=== PATIENT | female | born 1985 | race Caucasian/White ===

== ENCOUNTER 2019-05-29 15:34 | Emergency (ER) | payer MEDICAID, SELFPAY ==
[2019-05-29 15:46] VITALS: BP 128/73; PULSE 92; TEMP 37.2; O2SAT 100
[2019-05-29] MEDS: KETOROLAC (*BKC) 60 MG/2 ML VIAL IM (16:22)
[2019-05-29] MEDS: DIAZEPAM 5 MG TABLET PO (16:22)
--- NOTE | 2019-05-29 16:58 | ED.BACK ---
HPI - Back Pain/Injury General Chief Complaint: Back Pain/Injury Stated Complaint: Low back pain Time Seen by Provider: 05/29/19 15:42 Source: patient Mode of arrival: ambulatory Limitations: no limitations History of Present Illness HPI Narrative: This is a 33-year-old female that presents the emergency department for low back pain x1 month. No certain injury or trauma noted. Reports she does have a 2-year-old son at home that she has to lift a lot. Reports the pain is on the right side of her low back. It is worse in the morning and worse with movement. She has not been taking any medication at home for this. Denies fever, abdominal pain, nausea, vomiting, dysuria, hematuria, saddle anesthesia, or bowel/bladder incontinence. Related Data Allergies Allergy/AdvReac Type Severity Reaction Status Date / Time No Known Allergies Allergy Verified 07/11/16 15:31 Review of Systems Review of Systems: Narrative: CONSTITUTIONAL: Denies fever GASTROINTESTINAL: Denies abdominal pain, nausea, vomiting GENITOURINARY: Denies dysuria or hematuria. MUSCULOSKELETAL: Reports back pain, joint pain, and myalgia. NEUROLOGIC: Denies numbness, or weakness. All systems reviewed & are unremarkable except as noted in HPI and below PMFSH Social History Social History (Updated 05/29/19 @ 17:00 by Yara Tubbs PA-C) Smoking status: Never smoker Substance use: never Gender identity (if verbalized by the patient): Female Exam Narrative: Exam Narrative: GENERAL: Well-appearing, well-nourished, and in no acute distress. HEAD: Normocephalic, atraumatic. EYES: EOMI. CHEST: Clear to auscultation. No respiratory distress. No wheezes rales or rhonchi HEART: Regular rate and rhythm. No murmur heard. Normal peripheral pulses. ABDOMEN: Soft, nontender, nondistended, normal active bowel sounds. No CVA tenderness BACK: No midline spinal tenderness. Tender palpation of right lumbar paraspinal musculature EXTREMITIES: Normal range of motion. No edema. Strength equal in bilateral lower extremities (5/5). Normal patellar reflexes bilaterally SKIN: Warm, dry, no rash. NEURO: No focal deficits. Alert and oriented x3. PSYCH: Normal mood and affect Course Vital Signs Vital signs: Vital Signs Temperature 98.9 F 05/29/19 15:46 Pulse Rate 92 05/29/19 15:46 Blood Pressure 128/73 05/29/19 15:46 Pulse Oximetry 100 05/29/19 15:46 Temperature 98.9 F 05/29/19 15:46 Pulse Rate 92 05/29/19 15:46 Blood Pressure 128/73 05/29/19 15:46 Pulse Oximetry 100 05/29/19 15:46 MDM - Back Pain/Injury MDM Narrative Medical decision making narrative: Patient presents the emergency department for right-sided low back pain for the last month. No known injury or trauma. Does report lifting her son a lot. She is afebrile and nontoxic-appearing. No midline spinal tenderness. Patient is tender to palpation of the paraspinal musculature. Patient is neurologically intact. She was instructed on care of muscle strain. She is to follow-up with her primary care doctor. She was given warnings to return the ER Critical Care Time Critical Care Time Critical Care Time: No Discharge Plan Discharge Clinical Impression: Strain of lumbar region Qualifiers: Encounter type: initial encounter Qualified Code(s): S39.012A - Strain of muscle, fascia and tendon of lower back, initial encounter Patient Disposition: Home, Self-Care Condition: Stable Instructions: Back Pain (ED) Additional Instructions: Return to the ER if you experience fever, abdominal pain with nausea and vomiting, pain or burning with urination, weakness, numbness, bowel/bladder incontinence, or any other symptoms that are concerning to you Rest, use ice/heat, take anti-inflammatories (Aleve, Ibuprofen, Naproxen, etc) or Tylenol as needed for pain as well as muscle relaxer (Diazepam) as needed for pain. Muscle relaxers can make you drowsy, do not drive if you take this Follow
== END 2019-05-29 17:32 | disposition home or self-care (01) ==
PROVIDERS: Emergency Provider Emergency Medicine
DX: S39.012A Strain of muscle, fascia and tendon of lower back, initial encounter (principal); X50.9XXA Other and unspecified overexertion or strenuous movements or postures, initial encounter
CPT/HCPCS: 96372; 99283; A9270; J1885

== ENCOUNTER 2020-07-31 21:26 | Emergency (ER) | payer BC, SELFPAY ==
[2020-07-31 21:32] VITALS: BP 125/87; PULSE 72; RESP 18; TEMP 36.3; O2SAT 100
--- NOTE | 2020-07-31 22:09 | ED.DENTAL ---
HPI - Dental/Oral General Chief complaint: Dental/Oral Stated complaint: right lower jaw pain, tooth pain Time Seen by Provider: 07/31/20 21:41 Source: patient Mode of arrival: ambulatory Limitations: no limitations History of Present Illness HPI Narrative: This is a 34 year old female who presents for evaluation of right lower molar tooth pain. She has had pain for several months but it became worse over the past week. She was evaluated by a dentist awhile ago , and she has been told she needs her wisdom tooth resected . She has not called an oral surgeon or followed up. She has been taking oragel and ibuprofen for her pain. She denies gum swelling or neck swelling. Pain is 7/10. She denies pain with swallowing. Related Data Allergies Allergy/AdvReac Type Severity Reaction Status Date / Time No Known Allergies Allergy Verified 07/31/20 21:46 Review of Systems Review of Systems: All systems reviewed & are unremarkable except as noted in HPI and below PMFSH Past Medical History Medical History (Updated 08/01/20 @ 00:00 by Mare Choi) Patient denies medical problems Surgical History Surgical History (Updated 07/31/20 @ 22:13 by Elisha Hendrix MD) No pertinent past surgical history Social History Social History (Updated 05/29/19 @ 17:00 by Yara Tubbs PA-C) Smoking status: Never smoker Substance use: never Gender identity (if verbalized by the patient): Female Exam Const: General: no acute distress and alert Orientation/consciousness: patient oriented x3 HENMT: Head: normocephalic and atraumatic Face and sinus: face symmetric Mouth: Yes lip normal, Yes tongue normal and Yes moist mucous membranes Teeth and gingiva: gingiva normal and other (tooth # 32 impacted with yellow discoloration, no swelling, no lymphadenopa) Eyes: EOM: EOMs intact bilaterally Resp: Effort & Inspection: normal respiratory effort Skin: General skin exam: normal color Rashes: no rashes Neuro: General: patient oriented x3, moves all extremities and CN's II-XI intact bilaterally Psych: Mental Status: mental status grossly normal Affect: normal affect Course Reevaluation(s) Reevaluation #1: I discussed with patient plan to discharge with antibiotics and she will need to find an oral surgeon Date: 07/31/20 Time: 22:14 Vital Signs Vital signs: Vital Signs Temperature 97.4 F L 07/31/20 21:32 Pulse Rate 72 07/31/20 21:32 Respiratory Rate 18 07/31/20 21:32 Blood Pressure 125/87 07/31/20 21:32 Pulse Oximetry 100 07/31/20 21:32 Temperature 97.4 F L 07/31/20 21:32 Pulse Rate 72 07/31/20 21:32 Respiratory Rate 18 07/31/20 21:32 Blood Pressure 125/87 07/31/20 21:32 Pulse Oximetry 100 07/31/20 21:32 Discharge Plan Discharge Clinical Impression: Toothache Patient Disposition: Home, Self-Care Condition: Stable Instructions: Antibiotic Form, Toothache (ED) Additional Instructions: Today you were evaluated for dental pain. You can try one of the [facility] to see if they can perform your extraction. Take medications as prescribed. Prescriptions: New amoxicillin-pot clavulanate [Augmentin] 875-125 mg tablet 1 tablet PO Q12H Qty: 14 RF: 0 ibuprofen 800 mg tablet 800 mg PO Q6H PRN (Reason: pain) Qty: 14 RF: 0 tramadol 50 mg tablet 50 mg PO Q6H PRN (Reason: pain) Qty: 6 RF: 0 No Action diazepam [Valium] 5 mg tablet 5 mg PO BID PRN (Reason: muscle spasm) Qty: 10 RF: 0 Follow-up/Referrals: Sanjeev Tobin MD [Physician] - PHYSICIAN,[employer]IC [Primary Care Provider] - Stand Alone Forms: Work/School Release IP
[2020-07-31] MEDS: AMOXICILLIN/CLAVULANATE K 875-125 MG TAB 1 TABLET PO (22:13)
[2020-07-31] MEDS: HYDROcodone/acetaminophen (*CRX) 5-325 MG TABLET 1 TAB PO (22:14)
[2020-07-31] MEDS: ONDANSETRON HCL ODT 4 MG TABLET PO (22:14)
[2020-07-31] MEDS: KETOROLAC (*BKC) 60 MG/2 ML VIAL IM (22:15)
== END 2020-07-31 22:25 | disposition home or self-care (01) ==
PROVIDERS: Emergency Provider General Practice
DX: K08.89 Other specified disorders of teeth and supporting structures (principal)
CPT/HCPCS: 96372; 99283; A9270; J1885